=== PATIENT | male | born 1940 | race Hispanic/Latino ===

== ENCOUNTER → 2017-12-29 | Day surgery (SDC) | payer MEDICARE ==
[2017-12-27 15:23] LABS: BASOPHILS % 0.4 % (0.0-1.0); EOSINOPHILS # (AUTO) 0.2 (0.0-0.4); EOSINOPHILS % 2.5 % (0.0-6.0); HEMATOCRIT 39.7 % (38.2-49.6); HEMOGLOBIN 13.9 g/dL (14.0-18.0); LYMPHOCYTES # (AUTO) 1.9 (1.0-3.2); LYMPHOCYTES % 28.3 % (18.0-39.1); MEAN CORPUSCULAR HEMOGLOBIN 31.7 pg (28-32); MEAN CORPUSCULAR VOLUME 90.4 fL (81-99); MONOCYTES # (AUTO) 0.6 (0.2-0.8); MONOCYTES % 8.2 % (4.4-11.3); PLATELET COUNT 218 x10e3/uL (140-360); RED BLOOD COUNT 4.39 x10e6/uL (4.3-5.7)
[~2017-12-29] MED LIST: ACTOS30 MG HE; AVAPRO150 MG PO; BUSPIRONE HCL5 MG PO; CALCIUM PO; CARDIZEM PO; CORAL CALCIUM1 EAC3 PO; DEXILANT60 MG PO; FAMOTIDINE20 MG PO; GABAPENTIN300 MG PO; GAVISCON PO; GLIPIZIDE PO; GLIPIZIDE5 MG; GLIPIZIDE5 MG PO; ISOSORBIDE MONO30 MG PO; LEVOTHYROXINE50 MCG PO; LOVASTATIN40 MG PO; METFORMIN HCL1000 MG; METFORMIN HCL500 MG PO; MYLANTA PO; OXYBUTYNIN CHLOR5 MG PO; PACERONE200 MG PO; PLAVIX75 MG PO; PRILOSEC OTC20 MG; PROPOFOL IV EMULSION 10 MG/ML 20 ML VIAL ONE; PROTONIX40 MG PO; REGLAN10 MG PO; TOPROL XL25 MG PO; ULTRAM 50MG50 MG PO
[2017-12-29 07:40] VITALS: BP 142/77
--- OUTSIDE RECORDS SUMMARY | 2018-01-10 10:26 | XMS REPORT | Summary of Care ---
Author Author [facility] [place] Organization [facility] [place] Address Unknown Phone Unavailable Encounter HQ Encntr_alideshawn(FIN) [id number] Date(s): 04/05/16 - 04/05/16 [facility] [place] [address] [phone] Discharge Disposition: Home or Self Care Attending Physician: Mikey Zendejas MD Vital Signs No data available for this section Problem List No data available for this section Allergies, Adverse Reactions, Alerts No data available for this section Medications No data available for this section Results No data available for this section Immunizations No data available for this section Procedures No data available for this section Social History No data available for this section Assessment and Plan No data available for this section
--- OUTSIDE RECORDS SUMMARY | 2018-01-10 10:26 | XMS REPORT | Continuity of Care Document ---
Author Author [facility] Interface Address Unknown Phone Unavailable Problems Problem Status Onset Date Classification Date Reported Comments Source Other disorders of trigeminal nerve 06/23/2017 09/22/2017 [facility] [place] Radiculopathy, lumbar region 05/18/2017 08/18/2017 [facility] [place] M50.02 - CERVICAL DISC DISORDER WITH MY Active 05/24/2016 [facility] [place] M50.20 - OTHER CERVICAL DISC DISPLACEME Active 04/05/2016 [facility] [place] Chest pain Resolved Problem 09/22/2017 [facility] Leg pain Resolved Problem 09/22/2017 [facility] Simple obesity Active Problem 09/22/2017 [facility] Spinal stenosis, lumbar region without neurogenic claudication 08/18/2017 [facility] [place] Medications Medication Details Route Status Patient Instructions Ordering Provider Order Date Source lovastatin 40 mg oral tablet 40 mg=1 tab, PO, Bedtime, # 30 tab, 0 Refill(s) Active 07/12/2017 [facility] apixaban 2.5 MG Oral Tablet [Eliquis] See Instructions, 2.5 mg PO EVERY OTHER DAY, 0 Refill(s) Active 07/12/2017 [facility] levothyroxine 50 mcg (0.05 mg) oral tablet 50 microgram=1 tab, PO, Daily, # 30 tab, 0 Refill(s) Active 07/12/2017 [facility] clopidogrel 75 MG Oral Tablet [Plavix] 75 mg=1 tab, PO, Daily, # 30 tab, 0 Refill(s) Active 07/12/2017 [facility] famotidine 40 mg/5 mL oral liquid 40 mg=5 mL, PO, Bedtime, 0 Refill(s) Active 07/12/2017 [facility] busPIRone 10 mg oral tablet 10 mg=1 tab, PO, Bedtime, 0 Refill(s) Active 07/12/2017 [facility] tramadol hydrochloride 50 MG Oral Tablet 50 mg=1 tab, PO, Bedtime, 0 Refill(s) Active 07/12/2017 [facility] irbesartan 150 mg oral tablet 75 mg=0.5 tab, PO, Daily, 0 Refill(s) Active 07/12/2017 [facility] Metformin hydrochloride 500 MG Oral Tablet 500 mg=1 tab, PO, BID-Meals, # 30 tab, 0 Refill(s) Active 07/12/2017 [facility] Glipizide 10 MG Oral Tablet 10 mg=1 tab, PO, BID-Before Meals, # 180 tab, 1 Refill(s) Active 07/12/2017 [facility] oxybutynin 15 mg oral tablet, extended release 15 mg=1 tab, PO, BID, 0 Refill(s) Active 07/12/2017 [facility] Non-Formulary Home Medication See Instructions, Coral Calcium ofr seniors 2000mg, Refill(s) 0 Active 07/12/2017 [facility] Allergies, Adverse Reactions, Alerts Substance Category Reaction Severity Reaction type Status Date Reported Comments Source Immunizations Immunization Date Given Site Status Last Updated Comments Source Results Order Name Results Value Reference Range Date Interpretation Comments Source Brain w/wo contrast MRI Brain w/wo contrast MRI PATIENT NAME: JEANINE HASTINGS : 1940; Age: 76 years y/o Male MR: [id number] STUDY: Brain w/wo contrast MRI 06/16/2017 12:27 PM CDT ORDERING PHYSICIAN: Maureen Hendrickson MD CLINICAL INDICATION: G50.8 Other disorders of trigeminal nerve - G50.8 Other disorders of trigeminal nerve; COMPARISON: None TECHNIQUE : Multiplanar imaging of the brain was obtained both prior to and after uncomplicated IV administration of cc Dotarem. FINDINGS: BRAIN PARENCHYMA: There is no hemorrhage, mass lesion, extra axial collection, cerebral edema, or mass effect. Diffusion sequences are normal. There is mild generalized volume loss most evident in the temporal lobes. There are [id number]-jvmkhbfm periventricular and subcortical white matter signal abnormalities without mass effect. There are no cortical signal abnormalities.The cerebellar tonsils are above foramen magnum. The pituitary gland is age-appropriate. There is no abnormal enhancement. Visualized portion of cranial nerve V are normal. Meckel's caves are normal. CEREBELLOPONTINE REGIONS AND SKULL BASE: The cerebellopontine angles appear unremarkable. No skull base abnormality is seen. VENTRICLES/SULCI/CISTERNS: The ventricles are normal in size and configuration. The basal cisterns are patent. There is no prepontine cistern signal abnormality. VISUALIZED VESSELS: Major intracranial flow voids are preserved. The basilar flow void is midline. ORBITS, VISUALIZED PARANASAL SINUSES AND MASTOIDS: Paranasal sinuses are clear. The mastoid air cells are clear. No orbital pathology is seen. IMPRESSION: 1. No clearly identified explanation for trigeminal neuralgia 2. Mild generalized volume loss and extv-ph-absuraxy chronic microvascular ischemia 06/16/2017 - - Read by: Adeel Parsons MD Dictated Date/time: 06/16/17 13:42 Electronically Signed by: Adeel Parsons MD 06/16/17 13:44 FINAL REPORT [facility] Spine lumbar wo contrast MRI Spine lumbar wo contrast MRI EXAM: MRI LUMBAR SPINE WITHOUT CONTRAST DATE: 05/12/2017 9:45 AM PATIENT PARTNER . ORDERING PHYSICIAN: Maureen Hendrickson MD CLINICAL INDICATION: M54.16 Radiculopathy, lumbar region - M54.16 Radiculopathy, lumbar region; TECHNIQUE: Multiplanar, multisequence MRI lumbar spine without IV contrast COMPARISON: Unavailable FINDINGS: For the purposes of enumeration, the lowest well formed intervertebral disc was counted as L5-S1 on this exam. INTRASPINAL CONTENTS/CONUS: The conus terminates at L1-L2. 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 No definite dural based lesion. VERTEBRAE: The vertebrae are normal in height and alignment. No focal suspicious bone marrow signal abnormality. PARASPINAL SOFT TISSUES: No edema or definite masses. No aortic aneurysm. DISC SPACES, SPINAL CANAL, AND NEURAL FORAMINA: Negative lumbar pedicles are short, and there is epidural lipomatosis. T12-L1. Intervertebral disc height and signal are maintained. Posterior elements are normal. There is no stenosis. L1-L2. Intervertebral disc height and signal are maintained. Posterior elements are normal. There is no stenosis. L2-L3. The disc is dehydrated with 2 mm diffuse bulge and annular fissuring. There is bilateral facet hypertrophy. Central canal measures 10 mm with no cauda equina mass effect. Lateral recesses are narrowed without L3 nerve root mass effect. There is mild narrowing of the neural foraminal without L2 nerve root mass effect. L3-L4. Dehydrated disc with 1 to 2 mm diffuse bulge. There is bilateral facet hypertrophy. Central canal measures 5 mm with crowding of the cauda equina. Above this level the cauda equina nerve roots are redundant. Lateral recesses are effaced with nonvisualization of the L4 nerve roots. There is moderate to severe narrowing of the neural foramina bilaterally with exiting nerve root deformed by the disc and by facet osteophytes. L4-L5. Dehydrated disc with 2 mm diffuse bulge and central zone annular fissuring. There is bilateral facet hypertrophy with ligamentous redundancy. Central canal measures 5 mm with crowded cauda equina. Lateral recesses are effaced with nonvisualization of the descending L5 nerve roots. There is moderate to severe narrowing of left neural foramina moderate narrowing of the right. Left exiting nerve root is deformed by the disc and by facet osteophytes. L5-S1. Dehydrated disc without height loss. There is a 2 mm diffuse bulge. This bilateral facet hypertrophy. Central canal measures 8 mm with no cauda equina mass effect. Lateral recesses and descending S1 nerve roots. There is moderate narrowing of the neural foramina bilaterally. Contact compressed. IMPRESSION: 1. Moderate to severe L3-4 spinal stenosis and cauda equina crowding. Moderate L4-5 spinal stenosis and cauda equina crowding. 2. Moderate to severe neural foramen narrowing bilaterally at L3-4 and on the left L4-5 3. Short lumbar pedicles 05/12/2017 - - Read by: Adeel Parsons MD Dictated Date/time: 05/12/17 10:26 Electronically Signed by: Adeel Parsons MD 05/12/17 14:22 FINAL REPORT [facility] Spine cervical series DX Spine cervical series DX Exam: Cervical spine x-ray, 5 views Reason for Exam: - eval fusion status Comparison Exam: X-ray 05/24/2016 Discussion: On lateral view, the cervical spine is seen from the C1 vertebral body level down through the C7/T1 junction. Vertebral body heights are maintained. No spondylolisthesis. Patient is status post anterior cervical fusion from the C3- C6 levels. The amount of bony fusion appears similar. Flexion and extension views are unremarkable. No suspicious osteoblastic or osteolytic lesions. Prevertebral soft tissue is within normal limits. Lateral masses of C1 and dens of C2 are not adequately seen on frontal view. Please note that a cervical spine x-ray cannot rule out ligamentous injuries or spinal cord abnormalities. Visualized portions of the lung apices are unremarkable. Impression: 1. Patient is status post anterior cervical fusion from the C3-C6 levels. The amount of bony fusion appears similar. 10/04/2016 - - Read by: Tyshawn Varela MD Dictated Date/time: 10/04/16 16:42 Electronically Signed by: Tyshawn Varela MD 10/04/16 16:44 FINAL REPORT [facility] Del[facility] Spine cervical series DX Spine cervical series DX EXAM: Spine cervical series DX HISTORY: M50.02 Cervical disc disorder with myelopathy, mid-cervical region COMPARISON: 04/05/2016 Instrumented anterior cervical discectomy and fusion from C3 through C6 is again demonstrated transfixed with an anterior surgical plate, multiple screws, and interbody bone spacers. There is no listhesis of the cervical spine in neutral, flexion or extension position. The noninstrument intervertebral disc spaces are normal. IMPRESSION: Stable postoperative change of the cervical spine without excursion on flexion- extension views. 05/24/2016 - - Read by: Antonia Camarillo MD Dictated Date/time: 05/25/16 10:11 Electronically Signed by: Antonia Camarillo MD 05/25/16 10:13 FINAL REPORT [facility] Delval[facility] Spine cervical series DX Spine cervical series DX EXAMINATION: Cervical spine - AP, lateral neutral, lateral flexion, lateral extension HISTORY: Cervical spondylosis FINDINGS: Frontal, lateral neutral, lateral flexion, and lateral extension views of the cervical spine are performed without comparison. Instrumented anterior cervical discectomy and fusion from C3 through C6 is demonstrated transfixed with an anterior surgical plate, multiple screws, and interbody bone graft. There is no listhesis of the cervical spine in neutral position. The noninstrument intervertebral disc spaces are normal. Flexion- extension views demonstrate no evidence of angular excursion at the instrumented levels. IMPRESSION: 1. Instrumented anterior cervical discectomy and fusion, C3-C6, without evidence of angular excursion at these levels on flexion-extension views. 04/05/2016 - - Read by: Kalpesh Ahuja MD Dictated Date/time: 04/05/16 16:16 Electronically Signed by: Kalpesh Ahuja MD 04/05/16 16:18 FINAL REPORT [facility] [place] Vital Signs Vital Sign Value Date Comments Source Height 175.26 cm 07/12/2017 [facility] Weight 94.227 07/12/2017 [facility] BMI Calculated 30.68 07/12/2017 [facility] Heart Rate 71 07/12/2017 [facility] Systolic (mm Hg) 146 07/12/2017 [facility] Diastolic (mm Hg) 81 07/12/2017 [facility] Encounters Location Location Details Encounter Type Encounter Number Reason For Visit Attending Provider ADM Date DC Date Status Source [facility] [place] [facility] [id number] Mikey Pakzaban 04/05/2016 04/06/2016 [facility] [place] [facility] [place] [facility] [id number] Mikey Pakzaban 05/24/2016 05/25/2016 [facility] [place] [facility] [place] [facility] [id number] Mikey Pakzaban 10/04/2016 10/05/2016 [facility] [place] [facility] [place] [facility] [id number] Maureen Palvadi 05/12/2017 05/13/2017 [facility] [place] [facility] [place] [facility] [id number] Maureen Palvadi 06/16/2017 06/17/2017 [facility] [place] Outpatient [id number] [facility] 07/12/2017 Active [facility] Out[facility] [id number] [facility] 07/12/2017 [facility] Procedures Procedure Code Date Perfomer Comments Source Cardiac catheterisation, combined right and left heart [id number] [facility] [place] History of cervical spine fusion [id number] [facility] [place] Cardiac catheterisation, combined right and left heart [id number] [facility] History of cervical spine fusion [id number] [facility]
--- OUTSIDE RECORDS SUMMARY | 2018-01-10 10:26 | XMS REPORT | Summary of Care ---
Author Author [facility] [place] Organization [facility] [place] Address Unknown Phone Unavailable Encounter HQ Encntr_alideshawn(FIN) [id number] Date(s): 05/24/16 - 05/24/16 [facility] [place] [address] [phone] Discharge Disposition: Home or Self Care Attending [...]
--- OUTSIDE RECORDS SUMMARY | 2018-01-10 10:26 | XMS REPORT | Summary of Care ---
Author Author [facility] [place] Organization [facility] [place] Address Unknown Phone Unavailable Encounter HQ Encntr_alideshawn(FIN) [id number] Date(s): 10/04/16 - 10/04/16 [facility] [place] [address] [phone] Discharge Disposition: Home or Self Care Attending [...]
--- OUTSIDE RECORDS SUMMARY | 2018-01-10 10:26 | XMS REPORT | Summary of Care ---
Author Author [facility] [place] Organization [facility] [place] Address Unknown Phone Unavailable Encounter HQ Flavia(FIN) [id number] Date(s): 06/16/17 - 06/16/17 [facility] [place] [address] [address] [phone] Encounter Diagnosis Other disorders of trigeminal nerve (Final) - 06/22/17 Discharge Disposition: Home or Self Care Attending Physician: Maureen Hendrickson MD Vital Signs No data available for this section Problem List Condition Effective Dates Status Health Status Informant Chest Resolved pain(Confirmed) Leg pain(Confirmed) Resolved Simple Active obesity(Confirmed) Allergies, Adverse Reactions, Alerts No data available for this section Medications No data available for this section Results No data available for this section Immunizations No data available for this section Procedures Procedure Date Related Diagnosis Body Site Status Cardiac catheterisation, combined right and Completed left heart History of cervical spine fusion Completed Social History Social History Type Response Substance Abuse Use: None. Alcohol Current, Type Beer. Frequency: 1-2 times per week. Smoking Status Never smoker; Ready to change: No; Concerns about tobacco use in household: No; Exposure to Tobacco Smoke None; Cigarette Smoking Last 365 Days No; Reg Smoking Cessation Counseling No entered on: 07/12/17 Assessment and Plan No data available for this section
--- OUTSIDE RECORDS SUMMARY | 2018-01-10 10:26 | XMS REPORT | Summary of Care ---
Author Author [facility] Organization [facility] Address Unknown Phone Unavailable Encounter SHANNAN Alejandro(JUSTINO) [id number] Date(s): 07/12/17 - 07/12/[address] [facility] [address] [address], [address] [place], [place] [address] [phone] Discharge Disposition: Home or Self Care Attending Physician: Owen Villarreal MD Referring Physician: Maureen Hendrickson MD Vital Signs Most recent to 1 oldest [Reference Range]: Height 175.26 cm (07/12/17 12:11 PM) Blood Pressure 146/81 mmHg [90-140/60-90 mmHg] *HI* (07/12/17 12:11 PM) Peripheral Pulse 71 bpm Rate [60-100 bpm] (07/12/17 12:11 PM) Weight 94.227 kg (07/12/17 12:11 PM) Body Mass Index 30.68 m2 (07/12/17 12:11 PM) Problem List Condition Effective Dates Status Health Status Informant Chest Resolved pain(Confirmed) Leg pain(Confirmed) Resolved Simple Active obesity(Confirmed) Allergies, Adverse Reactions, Alerts No data available for this section Medications busPIRone 10 mg oral tablet 10 mg=1 tab, PO, Bedtime, 0 Refill(s) Start Date: 07/12/17 Status: Ordered Eliquis 2.5 mg oral tablet See Instructions, 2.5 mg PO EVERY OTHER DAY, 0 Refill(s) Start Date: 07/12/17 Status: Ordered famotidine 40 mg/5 mL oral liquid 40 mg=5 mL, PO, Bedtime, 0 Refill(s) Start Date: 07/12/17 Status: Ordered glipiZIDE 10 mg oral tablet 10 mg=1 tab, PO, BID-Before Meals, # 180 tab, 1 Refill(s) Start Date: 07/12/17 Status: Ordered irbesartan 150 mg oral tablet 75 mg=0.5 tab, PO, Daily, 0 Refill(s) Start Date: 07/12/17 Status: Ordered levothyroxine 50 mcg (0.05 mg) oral tablet 50 microgram=1 tab, PO, Daily, # 30 tab, 0 Refill(s) Start Date: 07/12/17 Status: Ordered lovastatin 40 mg oral tablet 40 mg=1 tab, PO, Bedtime, # 30 tab, 0 Refill(s) Start Date: 07/12/17 Status: Ordered metFORMIN 500 mg oral tablet 500 mg=1 tab, PO, BID-Meals, # 30 tab, 0 Refill(s) Start Date: 07/12/17 Status: Ordered Non-Formulary Home Medication See Instructions, Coral Calcium ofr seniors 2000mg, Refill(s) 0 Start Date: 07/12/17 Status: Ordered oxybutynin 15 mg oral tablet, extended release 15 mg=1 tab, PO, BID, 0 Refill(s) Start Date: 07/12/17 Status: Ordered Plavix 75 mg oral tablet 75 mg=1 tab, PO, Daily, # 30 tab, 0 Refill(s) Start Date: 07/12/17 Status: Ordered tramadol 50 mg oral tablet 50 mg=1 tab, PO, Bedtime, 0 Refill(s) Start Date: 07/12/17 Status: Ordered Results No data available for this section [...]
== END | disposition home or self-care (01) ==
LOC: OR 05:32
PROVIDERS: ATTEND Internal Medicine Gastroenterology
DX: K29.70 Gastritis, unspecified, without bleeding (principal); K21.0 Gastro-esophageal reflux disease with esophagitis; K44.9 Diaphragmatic hernia without obstruction or gangrene; Z71.3 Dietary counseling and surveillance; E66.9 Obesity, unspecified; I10 Essential (primary) hypertension; E11.9 Type 2 diabetes mellitus without complications; I25.10 Atherosclerotic heart disease of native coronary artery without angina pectoris; I48.91 Unspecified atrial fibrillation; G47.33 Obstructive sleep apnea (adult) (pediatric); Z01.812 Encounter for preprocedural laboratory examination; Z79.02 Long term (current) use of antithrombotics/antiplatelets; Z79.84 Long term (current) use of oral hypoglycemic drugs; Z68.30 Body mass index [BMI] 30.0-30.9, adult
CPT/HCPCS: 36415; 43239; 82948; 85025; 88305; 88312

== ENCOUNTER → 2018-06-30 | Outpatient (CLI) | payer MEDICARE ==
[~2018-06-30] MED LIST changes: -PROPOFOL IV EMULSION 10 MG/ML 20 ML VIAL ONE
--- NOTE | 2018-06-30 17:00 | Diagnostic Imaging Report ---
EXAMINATION: PA and lateral views of the chest. COMPARISON: None CLINICAL HISTORY: Chest pain DISCUSSION: Lungs are well-inflated and without focal consolidation, pleural effusion, or pneumothorax. Tortuous thoracic aorta with otherwise normal heart size. Coronary stents. No overt pulmonary edema. No acute osseous abnormality. Cervical spine fusion hardware partially visualized. IMPRESSION: No acute cardiopulmonary abnormalities. Signed by: Dr. Costa Rodriguez M.D. on 06/30/2018 4:57 PM
--- NOTE | 2018-06-30 17:32 | Diagnostic Imaging Report ---
EXAM: Complete Abdominal Ultrasound INDICATION: Left UPPER QUADRANT PAIN COMPARISON: None. TECHNIQUE: Transverse and longitudinal images of the upper abdomen were obtained. FINDINGS: Liver: Size: 14.5 cm in the right midclavicular line, normal Appearance: Increased echogenicity, smooth contour Mass: No focal masses Spleen: Size: 9.4 cm in length, normal Echogenicity: Normal Mass: No focal masses Gallbladder: Stones/Sludge: None Wall: 0.2 cm Appearance: No wall thickening, pericholecystic fluid or hydrops. Sonographic Camacho's Sign: Negative Bile Ducts: Intrahepatic Ducts: No dilatation Extrahepatic Ducts: Common bile duct measures 0.3 cm, no dilatation Pancreas: Limited visualization due to shadowing from overlying bowel gas. Kidneys: Length: Right 12.5 cm Left 11.1 cm Echogenicity: Normal Collecting System: No hydronephrosis Stone: None Cyst/Mass: Hypoechoic lesion with internal echoes in the parapelvic region of the upper pole of the right kidney measures 1.6 x 1.5 x 1.7 cm. Hypoechoic lesion exophytic off the lower pole of the left kidney measures 1.1 x 0.8 x 1.6 cm. Vessels: Aorta: limited visualization due to shadowing from overlying bowel gas. Inferior vena cava: limited visualization due to shadowing from overlying bowel gas. Main Portal Vein: 0.7 cm, normal size with hepatopetal flow. Free Fluid: No ascites or pleural effusion IMPRESSION: 1. Increased echogenicity of the hepatic parenchyma suggestive of steatosis. 2. Bilateral small indeterminate renal lesions. Recommend further characterization with CT or MRI of abdomen without and with contrast. LV hyper to kid LV hypo to spleen Gutierrez hyper to LV Liver Male < 16 cm Female < 15 cm Kidneys: NL 9-12 cm, <13 cm Spleen < 12 cm CBD < 7 mm CHD < 4-5 mm GB Wall < 3 mm Hydrops > 10 x 5 cm PV < 13 mm Panc. duct 3-2-1 Signed by: Dr. Cassidy Rm M.D. on 06/30/2018 5:29 PM
== END ==
LOC: US 15:36
PROVIDERS: ATTEND Internal Medicine
DX: R10.12 Left upper quadrant pain (principal); R07.89 Other chest pain
CPT/HCPCS: 71046; 76700

== ENCOUNTER → 2020-02-26 | Outpatient (CLI) | payer MEDICARE ==
--- NOTE | 2020-02-26 10:44 | Diagnostic Imaging Report ---
EXAM: US ABDOMEN COMPLETE DATE: 02/26/2020 9:34 AM INDICATION: Epigastric pain COMPARISON: Abdominal ultrasound 06/30/2018 TECHNIQUE: Transverse and longitudinal fabian scale and color doppler sonographic images of the upper abdomen were obtained. FINDINGS: LIVER 15.0 cm in the right midclavicular line. Increased echogenicity of the liver with normal contour, no masses. SPLEEN 13.8 cm in maximum diameter. Normal echogenicity, no masses. GALLBLADDER No gallbladder wall thickening, distension, stone, or pericholecystic fluid. Negative reported sonographic Camacho's sign. The gallbladder wall measures 2mm BILE DUCTS No intra nor extra-hepatic biliary dilation. Common bile duct measures 3mm PANCREAS: Visualized portions are normal. RIGHT KIDNEY: 12.3 cm Echogenicity: Normal Collecting System: No hydronephrosis Stones: None Cyst/Mass: None LEFT KIDNEY: 10.8 cm Echogenicity: Normal Collecting System: No hydronephrosis Stones: None Cyst/Mass: None VESSELS: Aorta: Visualized portions are within normal size limits Inferior Vena Cava: Visualized portions are normal Main Portal Vein: 1.0 cm, normal size with hepatopetal flow. FREE FLUID: None IMPRESSION: Hepatic steatosis. Mild splenomegaly. Signed by: Jony Kc MD on 02/26/2020 10:41 AM
== END ==
LOC: US 08:47
PROVIDERS: ATTEND Internal Medicine Gastroenterology
DX: R10.13 Epigastric pain (principal); E11.9 Type 2 diabetes mellitus without complications; I10 Essential (primary) hypertension; E66.9 Obesity, unspecified; Z71.3 Dietary counseling and surveillance
CPT/HCPCS: 76700

== ENCOUNTER 2020-12-19 18:06 | Inpatient (IN) | payer MEDICARE ==
[~2020-12-19] VITALS: Ht 175.3 cm; Wt 91.2 kg
[2020-12-19] MEDS ORDERED: ACETAMINOPHEN 325 MG TAB PO ONE (18:45)
[2020-12-19] MEDS ORDERED: POTASSIUM CHLORIDE 10MEQ EA PO ONE (19:00)
[2020-12-19] MEDS ORDERED: SODIUM CHLORIDE 0.9% 1000ML 1,000 ML IV STA (19:25)
[2020-12-19] MEDS ORDERED: CEFTRIAXONE 1 GM in SODIUM CHLORIDE 0.9% 50ML 50 ML IV ONE (19:30)
[2020-12-19] MEDS ORDERED: CASIRIVIMAB/IMDEVIMAB 10 ML in SODIUM CHLORIDE 0.9% 100 ML IV ONE (19:45)
[2020-12-19] MEDS ORDERED: DEXAMETHASONE SOD PHOS 10 MG/1 ML VIAL IV ONE (19:45)
[2020-12-19 19:49] LABS: BASOPHILS % 0.3 % (0.0-1.0); EOSINOPHILS # (AUTO) 0.1 (0.0-0.4); EOSINOPHILS % 3.2 % (0.0-6.0); HEMATOCRIT 35.5 % (38.2-49.6); HEMOGLOBIN 12.4 g/dL (14.0-18.0); LYMPHOCYTES # (AUTO) 0.4 (1.0-3.2); LYMPHOCYTES % 12.7 % (18.0-39.1); MEAN CORPUSCULAR HEMOGLOBIN 30.5 pg (28-32); MEAN CORPUSCULAR HGB CONC 34.9 g/dL (31-35); MEAN CORPUSCULAR VOLUME 87.2 fL (81-99); MONOCYTES # (AUTO) 0.4 (0.2-0.8); MONOCYTES % 10.6 % (4.4-11.3); NEUTROPHILS # (AUTO) 2.5 (2.1-6.9); NEUTROPHILS % 72.3 % (38.7-80.0); PLATELET COUNT 170 x10e3/uL (140-360); RED BLOOD COUNT 4.07 x10e6/uL (4.3-5.7); RED CELL DISTRIBUTION WIDTH 13.8 % (11.7-14.4)
[2020-12-19 20:09] LABS: ALBUMIN 3.2 g/dL (3.5-5.0); ALBUMIN/GLOBULIN RATIO 1.1 (0.8-2.0); ANION GAP 16.6 mmol/L (8-16); CALCIUM 7.6 mg/dL (8.4-10.2); CREATININE, SERUM 1.09 mg/dL (0.72-1.25); MAGNESIUM 1.9 MG/DL (1.3-2.1); PHOSPHORUS 2.4 MG/DL (2.3-4.7); POTASSIUM 3.6 mmol/L (3.5-5.1)
[2020-12-19 20:16] LABS: B-TYPE NATRIURETIC PEPTIDE2 21.3 pg/mL (0-100); CREATINE KINASE MB 1.2 ng/mL (0-5.0)
[2020-12-19 21:44] LABS: CLARITY,URINE SL CLOUDY (CLEAR); COLOR,URINE AMBER (YELLOW); KETONES,URINE TRACE (NEGATIVE); LEUKOCYTE ESTERASE ,URINE NEGATIVE (NEGATIVE); NITRITE,URINE NEGATIVE (NEGATIVE); PROTEIN,URINE DIPSTICK 2+ (NEGATIVE); URINE UROBILINOGEN 1 mg/dL (0.2 - 1)
[2020-12-19 21:48] LABS: AMORPHOUS SEDIMENT,URINE MODERATE (FEW); BACTERIA,URINE FEW /HPF; EPITHELIAL CELLS,URINE FEW /LPF; RBC,URINE 0-5 /HPF (0-5); WBC,URINE (MAN) 0-5 /HPF (0-5)
[2020-12-20] VITALS (9 sets, daily range): BP systolic 125–138; BP diastolic 66–71
[2020-12-20] MEDS ORDERED: TRAMADOL HCL 50 MG TAB PO SCH (07:45)
[2020-12-20] MEDS: IRBESARTAN 150 MG TAB PO SCH (08:28)
[2020-12-20] MEDS: LEVOTHYROXINE SODIUM 50 MCG TAB PO SCH (08:30)
[2020-12-20] MEDS: CLOPIDOGREL BISULFATE 75 MG TAB PO SCH (08:30)
[2020-12-20] MEDS: INSULIN LISPRO 100 UNIT/1 ML 3ML VIAL SQ SCH ×3 (08:40→21:42)
[2020-12-20 08:44] LABS: BASOPHILS % 0.3 % (0.0-1.0); HEMATOCRIT 34.5 % (38.2-49.6); LYMPHOCYTES # (AUTO) 0.5 (1.0-3.2); LYMPHOCYTES % 17.7 % (18.0-39.1); MEAN CORPUSCULAR HEMOGLOBIN 30.4 pg (28-32); MEAN CORPUSCULAR HGB CONC 34.8 g/dL (31-35); MEAN CORPUSCULAR VOLUME 87.3 fL (81-99); MONOCYTES # (AUTO) 0.2 (0.2-0.8); MONOCYTES % 7.7 % (4.4-11.3); NEUTROPHILS # (AUTO) 2.2 (2.1-6.9); NEUTROPHILS % 73.6 % (38.7-80.0); PLATELET COUNT 165 x10e3/uL (140-360); RED BLOOD COUNT 3.95 x10e6/uL (4.3-5.7); RED CELL DISTRIBUTION WIDTH 13.8 % (11.7-14.4)
[2020-12-20 09:01] LABS: ANION GAP 13.8 mmol/L (8-16); CREATININE, SERUM 0.93 mg/dL (0.72-1.25); POTASSIUM 4.8 mmol/L (3.5-5.1)
[2020-12-20 09:20] LABS: CREATINE KINASE MB 1.6 ng/mL (0-5.0)
[2020-12-20 14:48] LABS: CREATINE KINASE MB 1.4 ng/mL (0-5.0)
[2020-12-20] MEDS: ENOXAPARIN SOD INJ 40 MG/0.4 ML SYR SC SCH (16:22)
[2020-12-20 20:38] LABS: CREATINE KINASE MB 1.9 ng/mL (0-5.0)
[2020-12-20] MEDS: BUSPIRONE HCL 5 MG TAB PO SCH (21:41)
[2020-12-20] MEDS: SIMVASTATIN 20 MG TAB PO SCH (21:41)
[2020-12-20] MEDS: FAMOTIDINE 20 MG TAB PO SCH (21:41)
[2020-12-21] VITALS (9 sets, daily range): BP systolic 116–158; BP diastolic 63–81
[2020-12-21] MEDS: ACETAMINOPHEN 325 MG TAB PO PRN ×2 (01:03→20:52)
[2020-12-21 06:50] LABS: BASOPHILS % 0.3 % (0.0-1.0); EOSINOPHILS % 0.9 % (0.0-6.0); HEMATOCRIT 33.9 % (38.2-49.6); HEMOGLOBIN 12.1 g/dL (14.0-18.0); LYMPHOCYTES # (AUTO) 0.8 (1.0-3.2); LYMPHOCYTES % 22.8 % (18.0-39.1); MEAN CORPUSCULAR HEMOGLOBIN 30.5 pg (28-32); MEAN CORPUSCULAR HGB CONC 35.7 g/dL (31-35); MEAN CORPUSCULAR VOLUME 85.4 fL (81-99); MONOCYTES # (AUTO) 0.4 (0.2-0.8); MONOCYTES % 10.5 % (4.4-11.3); NEUTROPHILS # (AUTO) 2.2 (2.1-6.9); NEUTROPHILS % 64.3 % (38.7-80.0); PLATELET COUNT 186 x10e3/uL (140-360); RED BLOOD COUNT 3.97 x10e6/uL (4.3-5.7); RED CELL DISTRIBUTION WIDTH 13.6 % (11.7-14.4)
[2020-12-21 07:21] LABS: ANION GAP 12.9 mmol/L (8-16); CALCIUM 8.1 mg/dL (8.4-10.2); CREATININE, SERUM 0.78 mg/dL (0.72-1.25); POTASSIUM 3.9 mmol/L (3.5-5.1)
[2020-12-21] MEDS: DEXAMETHASONE 4 MG TAB PO SCH (07:30)
[2020-12-21] MEDS: INSULIN LISPRO 100 UNIT/1 ML 3ML VIAL SQ SCH ×4 (07:30→21:02)
[2020-12-21] MEDS: CEFTRIAXONE 1 GM in SODIUM CHLORIDE 0.9% 50ML 50 ML IV SCH (09:17)
[2020-12-21] MEDS: CLOPIDOGREL BISULFATE 75 MG TAB PO SCH (09:17)
[2020-12-21] MEDS: IRBESARTAN 150 MG TAB PO SCH (09:17)
[2020-12-21] MEDS: LEVOTHYROXINE SODIUM 50 MCG TAB PO SCH (09:18)
[2020-12-21] MEDS: ENOXAPARIN SOD INJ 40 MG/0.4 ML SYR SC SCH (16:57)
[2020-12-21] MEDS: FAMOTIDINE 20 MG TAB PO SCH (20:52)
[2020-12-21] MEDS: SIMVASTATIN 20 MG TAB PO SCH (20:52)
[2020-12-21] MEDS: BUSPIRONE HCL 5 MG TAB PO SCH (20:52)
[2020-12-22] VITALS: BP 125/65
[2020-12-22 04:00] VITALS: BP 152/81
[2020-12-22 08:00] VITALS: BP 154/86
[2020-12-22] MEDS: IRBESARTAN 150 MG TAB PO SCH (08:22)
[2020-12-22] MEDS: LEVOTHYROXINE SODIUM 50 MCG TAB PO SCH (08:22)
[2020-12-22] MEDS: CLOPIDOGREL BISULFATE 75 MG TAB PO SCH (08:22)
[2020-12-22] MEDS: DEXAMETHASONE 4 MG TAB PO SCH (08:22)
[2020-12-22] MEDS: CEFTRIAXONE 1 GM in SODIUM CHLORIDE 0.9% 50ML 50 ML IV SCH (08:22)
[2020-12-22] MEDS: INSULIN LISPRO 100 UNIT/1 ML 3ML VIAL SQ SCH ×2 (08:23→11:30)
[2020-12-22 09:32] VITALS: BP 154/86
[2020-12-22 09:34] VITALS: BP 154/86
[2020-12-22 11:35] VITALS: BP 142/72
== END 2020-12-22 12:40 | disposition home health service (06) | DRG 871 ==
LOC: ER 18:56 → ERHOLD 22:24 → IMCU 12-20 01:40
PROVIDERS: ADMIT Internal Medicine; ATTEND Internal Medicine
PROC: 8E0ZXY6 Isolation (ICD-10-PCS; principal; 2020-12-19)
DX: A41.89 Other specified sepsis (principal); U07.1 COVID-19; J12.82 Pneumonia due to coronavirus disease 2019; E87.1 Hypo-osmolality and hyponatremia; E87.2 Acidosis; D72.819 Decreased white blood cell count, unspecified; Z91.81 History of falling; I25.10 Atherosclerotic heart disease of native coronary artery without angina pectoris; Z95.5 Presence of coronary angioplasty implant and graft
CPT/HCPCS: 36415; 71045; 80048; 80053; 81001; 82550; 82553; 82948; 83605; 83735; 83880; 84100; 84484; 85025; 87040; 87086; 87400; 97139; 99284; J0456; J0696; J1100; J1650; J7030; J7050; U0002

== ENCOUNTER 2021-06-12 17:22 | Emergency (ER) | payer MEDICARE ==
[~2021-06-12] VITALS: Ht 175.3 cm; Wt 91.2 kg
[2021-06-12 18:23] LABS: BASOPHILS % 0.3 % (0.0-1.0); EOSINOPHILS # (AUTO) 0.1 (0.0-0.4); EOSINOPHILS % 1.2 % (0.0-6.0); HEMATOCRIT 35.6 % (38.2-49.6); LYMPHOCYTES # (AUTO) 0.5 (1.0-3.2); MEAN CORPUSCULAR HEMOGLOBIN 32.2 pg (28-32); MEAN CORPUSCULAR HGB CONC 36.5 g/dL (31-35); MEAN CORPUSCULAR VOLUME 88.1 fL (81-99); MONOCYTES # (AUTO) 0.8 (0.2-0.8); MONOCYTES % 11.4 % (4.4-11.3); NEUTROPHILS # (AUTO) 5.2 (2.1-6.9); NEUTROPHILS % 78.3 % (38.7-80.0); PLATELET COUNT 176 x10e3/uL (140-360); RED BLOOD COUNT 4.04 x10e6/uL (4.3-5.7); RED CELL DISTRIBUTION WIDTH 14.1 % (11.7-14.4)
[2021-06-12 18:38] LABS: ALBUMIN 3.6 g/dL (3.5-5.0); ALBUMIN/GLOBULIN RATIO 1.3 (0.8-2.0); ANION GAP 10.8 mmol/L (8-16); CALCIUM 8.9 mg/dL (8.4-10.2); CREATININE, SERUM 1.01 mg/dL (0.72-1.25); POTASSIUM 3.8 mmol/L (3.5-5.1)
[2021-06-12 18:59] LABS: CLARITY,URINE SL CLOUDY (CLEAR); COLOR,URINE YELLOW (YELLOW); KETONES,URINE TRACE (NEGATIVE); LEUKOCYTE ESTERASE ,URINE NEGATIVE (NEGATIVE); NITRITE,URINE NEGATIVE (NEGATIVE); PROTEIN,URINE DIPSTICK 1+ (NEGATIVE); URINE UROBILINOGEN 0.2 mg/dL (0.2 - 1)
[2021-06-12 19:04] LABS: BACTERIA,URINE FEW /HPF; EPITHELIAL CELLS,URINE FEW /LPF; MUCUS,URINE FEW (RARE)
[2021-06-12] MEDS ORDERED: PROAIR HFA INH8.5 GM PEG (19:45)
[2021-06-12] MEDS ORDERED: BENZONATATE200 MG PO (19:45)
[2021-06-12] MEDS ORDERED: TAMIFLU75 MG PO (19:45)
[2021-06-12 20:01] VITALS: BP 152/70
== END 2021-06-12 20:04 | disposition home or self-care (01) ==
LOC: ER 17:26
DX: R50.9 Fever, unspecified (principal); J10.1 Influenza due to other identified influenza virus with other respiratory manifestations; R53.1 Weakness; E11.65 Type 2 diabetes mellitus with hyperglycemia; I10 Essential (primary) hypertension; E78.5 Hyperlipidemia, unspecified; Z20.822 Contact with and (suspected) exposure to COVID-19
CPT/HCPCS: 36415; 71046; 80053; 81001; 82550; 82553; 84484; 85025; 93005; 99284; U0002

== ENCOUNTER → 2022-06-17 | Day surgery (SDC) | payer MEDICARE ==
[2022-06-11 14:29] LABS: BASOPHILS % 0.6 % (0.0-1.0); EOSINOPHILS # (AUTO) 0.2 (0.0-0.4); EOSINOPHILS % 2.7 % (0.0-6.0); HEMATOCRIT 43.5 % (38.2-49.6); HEMOGLOBIN 14.3 g/dL (14.0-18.0); LYMPHOCYTES # (AUTO) 1.7 (1.0-3.2); LYMPHOCYTES % 25.7 % (18.0-39.1); MEAN CORPUSCULAR HGB CONC 32.9 g/dL (31-35); MEAN CORPUSCULAR VOLUME 94.4 fL (81-99); MONOCYTES # (AUTO) 0.6 (0.2-0.8); MONOCYTES % 8.7 % (4.4-11.3); NEUTROPHILS # (AUTO) 4.1 (2.1-6.9); NEUTROPHILS % 61.7 % (38.7-80.0); PLATELET COUNT 218 x10e3/uL (140-360); RED BLOOD COUNT 4.61 x10e6/uL (4.3-5.7); RED CELL DISTRIBUTION WIDTH 14.4 % (11.7-14.4)
[~2022-06-17] MED LIST changes: +ACTOS30 MG PO; +BENZONATATE200 MG PO; +FENTANYL CITRATE/PF 100MCG/2 ML INJ ONE; +GLYCOPYRROLATE INJ 0.2 MG/ML VIAL ONE; +JARDIANCE10 MG; +LACTATED RINGER'S 1,000 ML ONE; +LIDOCAINE HCL 2% LOCAL INJ 5 ML SDV VIAL INJ ONE; +LOSARTAN POTAS100 MG PO; +METOPROLOL SUCC25 MG PO; +METOPROLOL SUCC50 MG PO; +PANTOPRAZOLE SO40 MG PO; +POVIDONE IODINE 0.05% 0.05 % ML PO ONE; +PROAIR HFA INH8.5 GM PEG; +PROPOFOL IV EMULSION 10 MG/ML 20 ML VIAL ONE; +TAMIFLU75 MG PO; +[UNRECOGNIZED DRUG - OTHER] PO
[2022-06-17 10:20] VITALS: BP 142/82
== END | disposition home or self-care (01) ==
LOC: OR 06:44
PROVIDERS: ATTEND Internal Medicine Gastroenterology
DX: R13.10 Dysphagia, unspecified (principal); D12.3 Benign neoplasm of transverse colon; K29.50 Unspecified chronic gastritis without bleeding; K44.9 Diaphragmatic hernia without obstruction or gangrene; K21.9 Gastro-esophageal reflux disease without esophagitis; K64.8 Other hemorrhoids; Z01.812 Encounter for preprocedural laboratory examination; Z79.02 Long term (current) use of antithrombotics/antiplatelets; Z79.84 Long term (current) use of oral hypoglycemic drugs; Z79.899 Other long term (current) drug therapy
CPT/HCPCS: 36415 ×2; 43233; 43239; 45385; 82948; 85025; 88305; 88342; J2001; J2704; J3010; J7121; 88312

== ENCOUNTER → 2024-05-31 | Day surgery (SDC) | payer MEDICARE ==
[2024-05-29 15:16] LABS: BASOPHILS % 0.5 % (0.0-1.0); EOSINOPHILS # (AUTO) 0.2 (0.0-0.4); HEMOGLOBIN 12.2 g/dL (14.0-18.0); LYMPHOCYTES # (AUTO) 1.4 (1.0-3.2); LYMPHOCYTES % 24.8 % (18.0-39.1); MEAN CORPUSCULAR HEMOGLOBIN 31.1 pg (28-32); MEAN CORPUSCULAR HGB CONC 33.9 g/dL (31-35); MEAN CORPUSCULAR VOLUME 91.8 fL (81-99); MONOCYTES # (AUTO) 0.5 (0.2-0.8); MONOCYTES % 8.9 % (4.4-11.3); NEUTROPHILS # (AUTO) 3.5 (2.1-6.9); NEUTROPHILS % 61.3 % (38.7-80.0); PLATELET COUNT 235 x10e3/uL (140-360); RED BLOOD COUNT 3.92 x10e6/uL (4.3-5.7); RED CELL DISTRIBUTION WIDTH 15.2 % (11.7-14.4); WHITE BLOOD COUNT 5.76 x10e3/uL (4.8-10.8)
[~2024-05-31] MED LIST changes: +AMLODIPINE BESYL5 MG PO; +CRESTOR40 MG PO; +ELIQUIS2.5 MG PO; -FENTANYL CITRATE/PF 100MCG/2 ML INJ ONE; +FLOMAX0.4 MG PO; -GLYCOPYRROLATE INJ 0.2 MG/ML VIAL ONE; -LACTATED RINGER'S 1,000 ML ONE; -POVIDONE IODINE 0.05% 0.05 % ML PO ONE
[2024-05-31] MEDS: LACTATED RINGER'S 1,000 ML ONE (09:49)
[2024-05-31 10:37] VITALS: TEMP 98.1
[2024-05-31 11:00] VITALS: BP 126/75; PULSE 59; RESP 18; O2SAT 100
== END | disposition home or self-care (01) ==
LOC: OR 09:00
PROVIDERS: ATTEND Internal Medicine Gastroenterology
DX: R13.10 Dysphagia, unspecified (principal); K29.50 Unspecified chronic gastritis without bleeding; K44.9 Diaphragmatic hernia without obstruction or gangrene; K21.9 Gastro-esophageal reflux disease without esophagitis; Z71.3 Dietary counseling and surveillance; G47.33 Obstructive sleep apnea (adult) (pediatric); E11.9 Type 2 diabetes mellitus without complications; E66.9 Obesity, unspecified; I10 Essential (primary) hypertension; I25.10 Atherosclerotic heart disease of native coronary artery without angina pectoris; I48.91 Unspecified atrial fibrillation; E03.9 Hypothyroidism, unspecified; Z01.812 Encounter for preprocedural laboratory examination; Z79.02 Long term (current) use of antithrombotics/antiplatelets; Z79.84 Long term (current) use of oral hypoglycemic drugs; Z79.899 Other long term (current) drug therapy; Z68.33 Body mass index [BMI] 33.0-33.9, adult; Z95.5 Presence of coronary angioplasty implant and graft; Z87.891 Personal history of nicotine dependence
CPT/HCPCS: 36415; 43235; 85025; J2003; J2704; J7121; 43239

== ENCOUNTER → 2024-06-22 | Day surgery (SDC) | payer MEDICARE ==
[~2024-06-22] MED LIST changes: +ACETAMINOPHEN 1000 MG/100 ML 100 ML IV ONE; +ACETAMINOPHEN/CODEINE 300MG - 30MG TAB ONE; +CEFTRIAXONE 1 GM VIAL ONE; +FAMOTIDINE 20 MG/2 ML VIAL IV ONE; +FENTANYL CITRATE/PF 100MCG/2 ML INJ ONE; +GENTAMICIN 80MG/NS 100 ML 200 ML IV ONE; +ONDANSETRON HCL INJ 2MG/ML 2ML 2 MG/ML VIAL ONE; +PHENAZOPYRIDINE HCL 100 MG TAB ONE; +ROCURONIUM BROMIDE 1 ML IV ONE; +SEVOFLURANE INHAL SOLN 250 ML PEN BTL ONE; +SODIUM CHLORIDE 0.9% 1000ML 1,000 ML ONE; +SUGAMMADEX SODIUM 200 MG/2 ML VIAL IV ONE
[2024-06-22 07:30] LABS: BASOPHILS # (AUTO) 0.1 (0.0-0.1); BASOPHILS % 0.8 % (0.0-1.0); EOSINOPHILS # (AUTO) 0.4 (0.0-0.4); EOSINOPHILS % 5.8 % (0.0-6.0); HEMATOCRIT 33.1 % (38.2-49.6); HEMOGLOBIN 11.2 g/dL (14.0-18.0); LYMPHOCYTES # (AUTO) 1.7 (1.0-3.2); LYMPHOCYTES % 26.6 % (18.0-39.1); MEAN CORPUSCULAR HEMOGLOBIN 31.1 pg (28-32); MEAN CORPUSCULAR HGB CONC 33.8 g/dL (31-35); MEAN CORPUSCULAR VOLUME 91.9 fL (81-99); MONOCYTES # (AUTO) 0.7 (0.2-0.8); MONOCYTES % 10.5 % (4.4-11.3); NEUTROPHILS # (AUTO) 3.6 (2.1-6.9); NEUTROPHILS % 55.7 % (38.7-80.0); PLATELET COUNT 207 x10e3/uL (140-360); WHITE BLOOD COUNT 6.39 x10e3/uL (4.8-10.8)
[2024-06-22 07:53] LABS: ALBUMIN 3.7 g/dL (3.5-5.0); ALBUMIN/GLOBULIN RATIO 1.2 (0.8-2.0); ANION GAP 13.1 mmol/L (8-16); BILIRUBIN,TOTAL 0.8 mg/dL (0.2-1.2); CALCIUM 9.1 mg/dL (8.4-10.2); CREATININE, SERUM 1.17 mg/dL (0.72-1.25); POTASSIUM 4.1 mmol/L (3.5-5.1); TOTAL PROTEIN 6.7 g/dL (6.5-8.1)
[2024-06-22 09:49] VITALS: TEMP 98.1
[2024-06-22] MEDS: FENTANYL CITRATE/PF 100MCG/2 ML INJ IV ONE (10:12)
[2024-06-22] MEDS: ACETAMINOPHEN/CODEINE 300MG - 30MG TAB PO ONE (10:12)
[2024-06-22] MEDS: PHENAZOPYRIDINE HCL 100 MG TAB PO ONE (10:25)
[2024-06-22 10:45] VITALS: BP 157/71; PULSE 52; RESP 18; O2SAT 99
== END | disposition home or self-care (01) ==
LOC: OR 06:34
PROVIDERS: ATTEND Urology
DX: N32.0 Bladder-neck obstruction (principal); N35.812 Other bulbous urethral stricture, male; N32.89 Other specified disorders of bladder; N40.0 Benign prostatic hyperplasia without lower urinary tract symptoms; N39.0 Urinary tract infection, site not specified; G47.33 Obstructive sleep apnea (adult) (pediatric); D64.9 Anemia, unspecified; I10 Essential (primary) hypertension; E78.5 Hyperlipidemia, unspecified; E11.9 Type 2 diabetes mellitus without complications; E03.9 Hypothyroidism, unspecified; K21.9 Gastro-esophageal reflux disease without esophagitis; I49.9 Cardiac arrhythmia, unspecified; I44.0 Atrioventricular block, first degree; H91.90 Unspecified hearing loss, unspecified ear; G57.93 Unspecified mononeuropathy of bilateral lower limbs; Z79.84 Long term (current) use of oral hypoglycemic drugs; Z79.899 Other long term (current) drug therapy; Z95.5 Presence of coronary angioplasty implant and graft; Z87.891 Personal history of nicotine dependence
CPT/HCPCS: 36415; 52005; 52500; 71046; 74420; 80053; 82948; 85025; 88305; 93005; J0131; J0696; J1580; J2003; J2405; J2704; J3010; J7030